=== PATIENT | female | born 1960 | race Caucasian/White ===

== ENCOUNTER 2020-11-03 13:19 | Inpatient (IN) ==
[2020-11-03] MEDS ORDERED: 0.9 % Sodium Chloride 1,000 ML IVC ONE (13:32)
[2020-11-03] MEDS ORDERED: Ipratropium/Albuterol Neb 3 ML IH ONE (13:32)
[2020-11-03] MEDS ORDERED: methylPREDNISolone 125 MG/2 ML VIAL IVP ONE (13:32)
[2020-11-03] MEDS ORDERED: Acetaminophen 325 MG TABLET PO ONE (13:51)
[2020-11-03 14:03] LABS: ABG Base Excess 4 mEq/L (-2 to 3); ABG HCO3 31 mEq/L (21-27); ABG Oxygen Saturation 98 % (95-98); ABG PCO2 58 mmHg (35-45); ABG PH 7.34 pH Units (7.32-7.45); ABG PO2 120 mmHg (85-104); ABG TCO2 33 mEq/L (20-26)
[2020-11-03 14:47] LABS: BUN/Creatinine Ratio 26 (6-26); Blood Urea Nitrogen 10 mg/dL (6-20); Calcium 9.2 mg/dL (8.6-10.3); Carbon Dioxide 30 mEq/L (23-29); Chloride 94 mEq/L (98-107); Creatine Kinase 164 Units/L (30-223); Glucose 118 mg/dL (70-105); Osmolality,Calculated 278 (280-300); Sodium 134 mEq/L (136-145); eGFR For African Americans > 60 (> 60); eGFR For Non-African Americans > 60 (> 60)
[2020-11-03 14:55] LABS: Troponin I < 0.03 ng/mL (< 0.04)
[2020-11-03 15:22] LABS: Adenovirus Not Detected (Not Detect); Bordetella Pertussis Not Detected (Not Detect); Chlamydophila pneumoniae Not Detected (Not Detect); Coronavirus 229E Not Detected (Not Detect); Coronavirus HKU1 Not Detected (Not Detect); Coronavirus NL63 Not Detected (Not Detect); Coronavirus OC43 Not Detected (Not Detect); Human Metapneumovirus Not Detected (Not Detect); Human Rhinovirus/Enterovirus Not Detected (Not Detect); Influenza A Subtype 2009 H1 Not Detected (Not Detect); Influenza B Not Detected (Not Detect); Mycoplasma pneumoniae Not Detected (Not Detect); Parainfluenza Virus 1 Not Detected (Not Detect); Parainfluenza Virus 2 Not Detected (Not Detect); Parainfluenza Virus 3 Not Detected (Not Detect); Parainfluenza Virus 4 Not Detected (Not Detect); Respiratory Syncytial Virus Not Detected (Not Detect); SARS-CoV-2 Not Detected (Not Detect)
[2020-11-03] MEDS ORDERED: Isovue-370 500 ML BOTTLE IVP ONE (15:32)
[2020-11-03] MEDS ORDERED: Naloxone 0.4 MG/ML INJ IVP PRN (15:37)
[2020-11-03] MEDS ORDERED: Ondansetron 4 MG/2 ML VIAL IVP PRN (15:37)
[2020-11-03] MEDS ORDERED: cefTRIAXone 2,000 MG in Water for inj. (sterile) 10 ML IVP SCH (16:00)
[2020-11-03 16:04] LABS: Basophils % 0.2 %; Eosinophils # 0.1 K/mcL (0.0-0.6); Eosinophils % 0.5 %; Hematocrit 39.7 % (35.3-44.9); Hemoglobin 12.6 g/dL (11.5-15.4); Immature Granulocytes % 0.7 % (0-4); Lymphocytes # 0.8 K/mcL (0.6-4.6); Lymphocytes % 4.9 %; Mean Corpuscular HGB Conc 31.7 g/dL (31.6-35.5); Mean Corpuscular Hemoglobin 28.3 pg (28.0-33.3); Mean Corpuscular Volume 89.2 fL (83.0-100.0); Monocytes # 0.5 K/mcL (0.0-1.3); Monocytes % 3.1 %; Neutrophils # 15.5 K/mcL (1.6-8.9); Platelet Count 432 K/mcL (140-400); Red Blood Count 4.45 M/mcL (3.82-4.97); Red Cell Distribution Width 13.8 % (11.5-14.5); Segmented Neutrophils % 90.6 %; White Blood Count 17.2 K/mcL (4.3-11.1)
[2020-11-03 17:29] LABS: Total Protein 6.9 g/dL (6.4-8.9)
[2020-11-03] MEDS: Doxycycline 100 MG in 0.9 % Sodium Chloride Mini Bag 100 ML IVPB SCH (18:02)
[2020-11-03] MEDS: *HR* Heparin 5,000 UNIT/ML VIAL SQ SCH (18:03)
[2020-11-03] MEDS: Nicotine 14 MG PATCH.TD24 TD SCH (20:21)
[2020-11-03] MEDS: Ipratropium/Albuterol Neb 3 ML IH SCH (22:49)
[2020-11-04] MEDS: Ipratropium/Albuterol Neb 3 ML IH SCH ×4 (04:59→22:20)
[2020-11-04 05:41] LABS: Basophils % 0.1 %; Eosinophils % 0.1 %; Hematocrit 42.5 % (35.3-44.9); Hemoglobin 13.2 g/dL (11.5-15.4); Immature Granulocytes % 0.8 % (0-4); Lymphocytes # 0.9 K/mcL (0.6-4.6); Lymphocytes % 6.6 %; Mean Corpuscular HGB Conc 31.1 g/dL (31.6-35.5); Mean Corpuscular Hemoglobin 27.6 pg (28.0-33.3); Mean Corpuscular Volume 88.7 fL (83.0-100.0); Mean Platelet Volume 9.3 fL (9.4-12.4); Monocytes # 0.3 K/mcL (0.0-1.3); Monocytes % 2.4 %; Neutrophils # 12.6 K/mcL (1.6-8.9); Platelet Count 412 K/mcL (140-400); Red Blood Count 4.79 M/mcL (3.82-4.97); Red Cell Distribution Width 13.8 % (11.5-14.5)
[2020-11-04 06:01] LABS: BUN/Creatinine Ratio 33 (6-26); Blood Urea Nitrogen 13 mg/dL (6-20); Calcium 9.3 mg/dL (8.6-10.3); Carbon Dioxide 29 mEq/L (23-29); Chloride 97 mEq/L (98-107); Glucose 114 mg/dL (70-105); Osmolality,Calculated 283 (280-300); Potassium 4.2 mEq/L (3.5-5.1); Sodium 136 mEq/L (136-145); eGFR For African Americans > 60 (> 60); eGFR For Non-African Americans > 60 (> 60)
[2020-11-04] MEDS: MethylPREDNISolone 40 MG/ML VIAL IVP SCH ×2 (06:10→17:50)
[2020-11-04] MEDS: Doxycycline 100 MG in 0.9 % Sodium Chloride Mini Bag 100 ML IVPB SCH ×2 (06:16→17:51)
[2020-11-04] MEDS: *HR* Heparin 5,000 UNIT/ML VIAL SQ SCH ×2 (06:16→17:50)
[2020-11-04] MEDS: *HR* LORazepam 2 MG/ML VIAL IVP PRN ×2 (06:32→21:59)
[2020-11-04 09:15] LABS: INR 1.2; Prothrombin Time 13.6 Seconds (9.4-12.1)
[2020-11-04] MEDS: Nicotine 14 MG PATCH.TD24 TD SCH (09:38)
[2020-11-04] MEDS: Budesonide/Formoterol 160/4.5 1 PUFF INH IH SCH ×2 (10:44→21:38)
[2020-11-04] MEDS ORDERED: Azithromycin 500 MG in 0.9 % Sodium Chloride 250 ML IVPB SCH (15:00)
[2020-11-04] MEDS: Acetaminophen 325 MG TABLET PO PRN (17:49)
[2020-11-04] MEDS: cefTRIAXone 1,000 MG in 0.9 % Sodium Chloride Mini Bag 100 ML IVPB SCH (17:50)
[2020-11-05 02:50] LABS: Basophils % 0.1 %; Hematocrit 37.7 % (35.3-44.9); Hemoglobin 11.7 g/dL (11.5-15.4); Immature Granulocytes % 1.1 % (0-4); Lymphocytes % 4.7 %; Mean Corpuscular Hemoglobin 27.8 pg (28.0-33.3); Mean Corpuscular Volume 89.5 fL (83.0-100.0); Mean Platelet Volume 8.9 fL (9.4-12.4); Monocytes # 0.6 K/mcL (0.0-1.3); Monocytes % 3.1 %; Neutrophils # 18.2 K/mcL (1.6-8.9); Platelet Count 469 K/mcL (140-400); Red Blood Count 4.21 M/mcL (3.82-4.97); Red Cell Distribution Width 13.7 % (11.5-14.5); White Blood Count 20.1 K/mcL (4.3-11.1)
[2020-11-05 03:10] LABS: BUN/Creatinine Ratio 51 (6-26); Blood Urea Nitrogen 19 mg/dL (6-20); Calcium 9.1 mg/dL (8.6-10.3); Carbon Dioxide 32 mEq/L (23-29); Chloride 96 mEq/L (98-107); Glucose 131 mg/dL (70-105); Osmolality,Calculated 282 (280-300); Potassium 4.8 mEq/L (3.5-5.1); Sodium 134 mEq/L (136-145); eGFR For African Americans > 60 (> 60); eGFR For Non-African Americans > 60 (> 60)
[2020-11-05] MEDS: Ipratropium/Albuterol Neb 3 ML IH SCH ×4 (04:10→22:12)
[2020-11-05] MEDS: *HR* Heparin 5,000 UNIT/ML VIAL SQ SCH ×2 (04:44→17:48)
[2020-11-05] MEDS: *HR* LORazepam 2 MG/ML VIAL IVP PRN ×2 (04:45→20:44)
[2020-11-05] MEDS: MethylPREDNISolone 40 MG/ML VIAL IVP SCH ×2 (04:45→17:49)
[2020-11-05] MEDS: Doxycycline 100 MG in 0.9 % Sodium Chloride Mini Bag 100 ML IVPB SCH ×2 (04:57→17:48)
[2020-11-05] MEDS ORDERED: Ondansetron 4 MG/2 ML VIAL IVP PRN (08:47)
[2020-11-05] MEDS ORDERED: Promethazine 6.25 MG in Water for inj. (sterile) 20 ML IVPB PRN (08:47)
[2020-11-05] MEDS ORDERED: *HR* HYDROmorphone PF 0.5 MG/0.5 ML SYRINGE IVP PRN (08:47)
[2020-11-05] MEDS ORDERED: *HR* OxyCODONE Immed Rel 5 MG TABLET PO PRN (08:47)
[2020-11-05] MEDS ORDERED: *HR* Rocuronium Bromide 50 MG/5 ML VIAL ONE (08:49)
[2020-11-05] MEDS ORDERED: *HR* Midazolam HCl 2 MG/2 ML VIAL ONE (08:49)
[2020-11-05] MEDS ORDERED: *HR* Succinylcholine 200 MG/10 ML VIAL IVP ONE (08:49)
[2020-11-05] MEDS ORDERED: *HR* Propofol 200 MG/20 ML VIAL IVP ONE (08:49)
[2020-11-05] MEDS ORDERED: Lidocaine HCL 4 ML Topical Solution (Laryng-O-Jet Kit Sterile Pak) TP ONE (08:49)
[2020-11-05] MEDS ORDERED: Lidocaine -MPF 2% 2 ML VIAL ONE (08:49)
[2020-11-05] MEDS ORDERED: *HR* FentaNYL (PF) 100 MCG/2 ML VIAL ONE (08:49)
[2020-11-05] MEDS ORDERED: Sugammadex Sodium 200 MG/2 ML VIAL IV ONE (09:46)
[2020-11-05] MEDS: Budesonide/Formoterol 160/4.5 1 PUFF INH IH SCH ×2 (10:27→22:13)
[2020-11-05] MEDS: Ipratropium/Albuterol Neb 3 ML IH PRN (10:52)
[2020-11-05 12:17] LABS: Lactate Dehydrogenase 203 Units/L (140-271); Total Protein 6.3 g/dL (6.4-8.9)
[2020-11-05] MEDS: Acetaminophen 325 MG TABLET PO PRN (12:36)
[2020-11-05] MEDS: Nicotine 14 MG PATCH.TD24 TD SCH (13:53)
[2020-11-05 15:10] LABS: RBC,Pleural Fluid 2000 RBC/mcL
[2020-11-05 15:11] LABS: Appearance of Pleural Fl Cloudy (Clear)
[2020-11-05 15:37] LABS: Total Protein,Pleural Fluid 4.4 g/dL
[2020-11-05 16:12] LABS: Basophils,Pleural Fluid 0 %; Eosinophils,Pleural Fluid 0 %; Monocytes,Pleural Fluid 0 %
[2020-11-05] MEDS: cefTRIAXone 1,000 MG in 0.9 % Sodium Chloride Mini Bag 100 ML IVPB SCH (17:49)
[2020-11-06] MEDS: Ipratropium/Albuterol Neb 3 ML IH SCH ×4 (03:42→22:24)
[2020-11-06 05:02] LABS: Basophils % 0.1 %; Hematocrit 38.4 % (35.3-44.9); Hemoglobin 11.7 g/dL (11.5-15.4); Immature Granulocytes % 1.3 % (0-4); Lymphocytes # 0.9 K/mcL (0.6-4.6); Lymphocytes % 5.2 %; Mean Corpuscular HGB Conc 30.5 g/dL (31.6-35.5); Mean Corpuscular Hemoglobin 27.7 pg (28.0-33.3); Monocytes % 5.9 %; Neutrophils # 15.2 K/mcL (1.6-8.9); Platelet Count 437 K/mcL (140-400); Red Blood Count 4.22 M/mcL (3.82-4.97); Red Cell Distribution Width 13.7 % (11.5-14.5); Segmented Neutrophils % 87.5 %; White Blood Count 17.3 K/mcL (4.3-11.1)
[2020-11-06 05:24] LABS: BUN/Creatinine Ratio 53 (6-26); Blood Urea Nitrogen 20 mg/dL (6-20); Carbon Dioxide 38 mEq/L (23-29); Chloride 94 mEq/L (98-107); Glucose 129 mg/dL (70-105); Osmolality,Calculated 286 (280-300); Potassium 4.4 mEq/L (3.5-5.1); Sodium 136 mEq/L (136-145); eGFR For African Americans > 60 (> 60); eGFR For Non-African Americans > 60 (> 60)
[2020-11-06] MEDS: *HR* Heparin 5,000 UNIT/ML VIAL SQ SCH ×2 (06:12→17:24)
[2020-11-06] MEDS: Doxycycline 100 MG in 0.9 % Sodium Chloride Mini Bag 100 ML IVPB SCH ×2 (06:13→17:25)
[2020-11-06] MEDS: MethylPREDNISolone 40 MG/ML VIAL IVP SCH ×2 (06:13→17:23)
[2020-11-06] MEDS: Nicotine 14 MG PATCH.TD24 TD SCH (07:46)
[2020-11-06] MEDS: Budesonide/Formoterol 160/4.5 1 PUFF INH IH SCH ×2 (10:26→22:24)
[2020-11-06 10:38] LABS: Alanine Aminotransferase 11 Units/L (7-52); Albumin 3.5 g/dL (3.5-5.7); Albumin/Globulin Ratio 1.4 (1.1-2.2); Alkaline Phosphatase 72 Units/L (34-104); Aspartate Amino Transferase 10 Units/L (13-39); Bilirubin,Direct 0.1 mg/dL (0.0-0.2); Bilirubin,Indirect 0.2 mg/dL (0.0-1.0); Bilirubin,Total 0.3 mg/dL (0.3-1.0); Globulin 2.5 g/dL (2.4-3.5); Lactate Dehydrogenase 166 Units/L (140-271)
[2020-11-06] MEDS: *HR* LORazepam 2 MG/ML VIAL IVP PRN ×2 (14:28→20:43)
[2020-11-06 14:36] LABS: Appearance of Body Fluid Cloudy (Clear); Volume of Body Fluid 17 mL
[2020-11-06] MEDS: cefTRIAXone 1,000 MG in 0.9 % Sodium Chloride Mini Bag 100 ML IVPB SCH (17:24)
[2020-11-07] MEDS: Ipratropium/Albuterol Neb 3 ML IH SCH ×4 (03:44→22:08)
[2020-11-07] MEDS: Acetaminophen 325 MG TABLET PO PRN (04:30)
[2020-11-07] MEDS: *HR* Heparin 5,000 UNIT/ML VIAL SQ SCH ×2 (05:27→17:15)
[2020-11-07 07:52] LABS: Basophils # 0.1 K/mcL (0.0-0.2); Basophils % 0.3 %; Eosinophils # 0.1 K/mcL (0.0-0.6); Eosinophils % 0.3 %; Hemoglobin 11.3 g/dL (11.5-15.4); Immature Granulocytes % 2.3 % (0-4); Lymphocytes # 1.4 K/mcL (0.6-4.6); Lymphocytes % 8.5 %; Mean Corpuscular HGB Conc 31.4 g/dL (31.6-35.5); Mean Corpuscular Hemoglobin 28.4 pg (28.0-33.3); Mean Corpuscular Volume 90.5 fL (83.0-100.0); Monocytes # 1.3 K/mcL (0.0-1.3); Monocytes % 7.7 %; Neutrophils # 13.1 K/mcL (1.6-8.9); Platelet Count 324 K/mcL (140-400); Red Blood Count 3.98 M/mcL (3.82-4.97); Red Cell Distribution Width 13.6 % (11.5-14.5); Segmented Neutrophils % 80.9 %; White Blood Count 16.2 K/mcL (4.3-11.1)
[2020-11-07 08:46] LABS: BUN/Creatinine Ratio 57 (6-26); Blood Urea Nitrogen 21 mg/dL (6-20); Calcium 8.8 mg/dL (8.6-10.3); Carbon Dioxide 28 mEq/L (23-29); Chloride 95 mEq/L (98-107); Glucose 95 mg/dL (70-105); Osmolality,Calculated 281 (280-300); Potassium 4.6 mEq/L (3.5-5.1); Sodium 134 mEq/L (136-145); eGFR For African Americans > 60 (> 60); eGFR For Non-African Americans > 60 (> 60)
[2020-11-07] MEDS: Doxycycline 100 MG CAPSULE PO SCH ×2 (09:16→20:41)
[2020-11-07] MEDS: Cefdinir 300 MG CAPSULE PO SCH ×2 (09:16→20:41)
[2020-11-07] MEDS: predniSONE 20 MG TABLET PO SCH (09:16)
[2020-11-07] MEDS: Nicotine 14 MG PATCH.TD24 TD SCH (09:17)
[2020-11-07] MEDS: *HR* LORazepam 1 MG TABLET PO PRN ×2 (09:23→20:41)
[2020-11-07] MEDS: Budesonide/Formoterol 160/4.5 1 PUFF INH IH SCH ×2 (11:32→22:13)
[2020-11-07] MEDS: Ipratropium/Albuterol Neb 3 ML IH PRN (19:32)
[2020-11-07] MEDS: Doxycycline 100 MG in 0.9 % Sodium Chloride Mini Bag 100 ML IVPB SCH (22:40)
[2020-11-07] MEDS: MethylPREDNISolone 40 MG/ML VIAL IVP SCH (22:40)
[2020-11-07] MEDS: Sennosides/Docusate Sodium TABLET PO SCH (23:44)
[2020-11-08 01:46] LABS: Fluid Source for Cholesterol PLEURAL FLUID
[2020-11-08 04:48] LABS: Basophils # 0.1 K/mcL (0.0-0.2); Basophils % 0.5 %; Eosinophils # 0.2 K/mcL (0.0-0.6); Eosinophils % 1.4 %; Hematocrit 37.6 % (35.3-44.9); Hemoglobin 11.7 g/dL (11.5-15.4); Immature Granulocytes % 2.5 % (0-4); Lymphocytes # 2.7 K/mcL (0.6-4.6); Lymphocytes % 17.4 %; Mean Corpuscular HGB Conc 31.1 g/dL (31.6-35.5); Mean Corpuscular Hemoglobin 27.6 pg (28.0-33.3); Mean Corpuscular Volume 88.7 fL (83.0-100.0); Mean Platelet Volume 9.4 fL (9.4-12.4); Monocytes # 1.4 K/mcL (0.0-1.3); Neutrophils # 10.7 K/mcL (1.6-8.9); Platelet Count 383 K/mcL (140-400); Red Blood Count 4.24 M/mcL (3.82-4.97); Red Cell Distribution Width 13.7 % (11.5-14.5); Segmented Neutrophils % 69.2 %; White Blood Count 15.5 K/mcL (4.3-11.1)
[2020-11-08] MEDS: Ipratropium/Albuterol Neb 3 ML IH SCH ×4 (04:58→21:46)
[2020-11-08 05:05] LABS: BUN/Creatinine Ratio 49 (6-26); Blood Urea Nitrogen 19 mg/dL (6-20); Calcium 8.9 mg/dL (8.6-10.3); Carbon Dioxide 32 mEq/L (23-29); Chloride 95 mEq/L (98-107); Glucose 76 mg/dL (70-105); Osmolality,Calculated 283 (280-300); Potassium 4.2 mEq/L (3.5-5.1); Sodium 136 mEq/L (136-145); eGFR For African Americans > 60 (> 60); eGFR For Non-African Americans > 60 (> 60)
[2020-11-08] MEDS: *HR* Heparin 5,000 UNIT/ML VIAL SQ SCH ×2 (06:20→16:55)
[2020-11-08] MEDS: Nicotine 14 MG PATCH.TD24 TD SCH (08:14)
[2020-11-08] MEDS: Doxycycline 100 MG CAPSULE PO SCH ×2 (08:18→19:57)
[2020-11-08] MEDS: Sennosides/Docusate Sodium TABLET PO SCH ×2 (08:18→19:57)
[2020-11-08] MEDS: *HR* LORazepam 1 MG TABLET PO PRN ×2 (08:18→20:00)
[2020-11-08] MEDS: predniSONE 20 MG TABLET PO SCH (08:18)
[2020-11-08] MEDS: Cefdinir 300 MG CAPSULE PO SCH ×2 (08:18→19:57)
[2020-11-08] MEDS: Ipratropium/Albuterol Neb 3 ML IH PRN (09:53)
[2020-11-08] MEDS: Budesonide/Formoterol 160/4.5 1 PUFF INH IH SCH ×2 (09:54→21:46)
[2020-11-08 10:32] LABS: Cholesterol,Body Fluid 98 mg/dL
[2020-11-08] MEDS: Acetaminophen 325 MG TABLET PO PRN (10:38)
[2020-11-09 02:28] LABS: Basophils # 0.1 K/mcL (0.0-0.2); Basophils % 0.3 %; Eosinophils # 0.4 K/mcL (0.0-0.6); Eosinophils % 2.7 %; Hematocrit 36.2 % (35.3-44.9); Hemoglobin 11.2 g/dL (11.5-15.4); Lymphocytes % 17.7 %; Mean Corpuscular HGB Conc 30.9 g/dL (31.6-35.5); Mean Corpuscular Hemoglobin 27.2 pg (28.0-33.3); Mean Corpuscular Volume 87.9 fL (83.0-100.0); Mean Platelet Volume 9.2 fL (9.4-12.4); Monocytes # 1.2 K/mcL (0.0-1.3); Monocytes % 7.6 %; Neutrophils # 11.2 K/mcL (1.6-8.9); Platelet Count 368 K/mcL (140-400); Red Blood Count 4.12 M/mcL (3.82-4.97); Red Cell Distribution Width 14.1 % (11.5-14.5); Segmented Neutrophils % 69.7 %; White Blood Count 16.1 K/mcL (4.3-11.1)
[2020-11-09 02:30] LABS: Lymphocytes # 2.9 K/mcL (0.6-4.6)
[2020-11-09 02:51] LABS: BUN/Creatinine Ratio 62 (6-26); Blood Urea Nitrogen 21 mg/dL (6-20); Calcium 8.7 mg/dL (8.6-10.3); Carbon Dioxide 34 mEq/L (23-29); Chloride 96 mEq/L (98-107); Glucose 104 mg/dL (70-105); Osmolality,Calculated 289 (280-300); Potassium 3.8 mEq/L (3.5-5.1); Sodium 138 mEq/L (136-145); eGFR For African Americans > 60 (> 60); eGFR For Non-African Americans > 60 (> 60)
[2020-11-09 02:59] LABS: Platelet Estimate Normal (Normal); Reactive Lymphocytes Present (Not Present)
[2020-11-09] MEDS: Ipratropium/Albuterol Neb 3 ML IH SCH ×4 (04:09→19:39)
[2020-11-09] MEDS: *HR* Heparin 5,000 UNIT/ML VIAL SQ SCH ×2 (05:55→18:27)
[2020-11-09] MEDS: Doxycycline 100 MG CAPSULE PO SCH (07:50)
[2020-11-09] MEDS: Cefdinir 300 MG CAPSULE PO SCH (07:51)
[2020-11-09] MEDS: Sennosides/Docusate Sodium TABLET PO SCH ×2 (07:51→19:36)
[2020-11-09] MEDS: predniSONE 20 MG TABLET PO SCH (07:51)
[2020-11-09] MEDS: Nicotine 14 MG PATCH.TD24 TD SCH (07:51)
[2020-11-09] MEDS: *HR* LORazepam 1 MG TABLET PO PRN ×2 (07:54→19:36)
[2020-11-09] MEDS: Budesonide/Formoterol 160/4.5 1 PUFF INH IH SCH ×2 (08:46→19:39)
[2020-11-09] MEDS ORDERED: levoFLOXacin 750 MG TABLET PO SCH (15:00)
[2020-11-09] MEDS: Ipratropium/Albuterol Neb 3 ML IH PRN ×2 (19:37→23:44)
[2020-11-10 01:39] LABS: Basophils % 0.2 %; Eosinophils # 0.1 K/mcL (0.0-0.6); Eosinophils % 0.8 %; Hematocrit 37.6 % (35.3-44.9); Hemoglobin 11.8 g/dL (11.5-15.4); Immature Granulocytes % 1.7 % (0-4); Lymphocytes # 2.6 K/mcL (0.6-4.6); Lymphocytes % 17.2 %; Mean Corpuscular HGB Conc 31.4 g/dL (31.6-35.5); Mean Corpuscular Hemoglobin 27.5 pg (28.0-33.3); Mean Corpuscular Volume 87.6 fL (83.0-100.0); Mean Platelet Volume 9.1 fL (9.4-12.4); Monocytes % 6.8 %; Neutrophils # 11.1 K/mcL (1.6-8.9); Platelet Count 332 K/mcL (140-400); Red Blood Count 4.29 M/mcL (3.82-4.97); Red Cell Distribution Width 14.3 % (11.5-14.5); Segmented Neutrophils % 73.3 %; White Blood Count 15.1 K/mcL (4.3-11.1)
[2020-11-10 01:59] LABS: BUN/Creatinine Ratio 54 (6-26); Blood Urea Nitrogen 19 mg/dL (6-20); Carbon Dioxide 32 mEq/L (23-29); Chloride 97 mEq/L (98-107); Glucose 103 mg/dL (70-105); Magnesium 1.8 mg/dL (1.6-2.6); Osmolality,Calculated 285 (280-300); Potassium 3.7 mEq/L (3.5-5.1); Sodium 136 mEq/L (136-145); eGFR For African Americans > 60 (> 60); eGFR For Non-African Americans > 60 (> 60)
[2020-11-10] MEDS: Acetaminophen 325 MG TABLET PO PRN (02:11)
[2020-11-10 04:02] VITALS: O2SAT 95
[2020-11-10] MEDS: Ipratropium/Albuterol Neb 3 ML IH SCH ×2 (04:02→10:05)
[2020-11-10] MEDS: *HR* LORazepam 1 MG TABLET PO PRN ×2 (04:05→08:25)
[2020-11-10] MEDS: *HR* Heparin 5,000 UNIT/ML VIAL SQ SCH (04:05)
[2020-11-10] MEDS: Nicotine 14 MG PATCH.TD24 TD SCH (08:22)
[2020-11-10] MEDS: Sennosides/Docusate Sodium TABLET PO SCH (08:25)
[2020-11-10] MEDS: predniSONE 20 MG TABLET PO SCH (08:25)
[2020-11-10] MEDS: Budesonide/Formoterol 160/4.5 1 PUFF INH IH SCH (10:05)
[2020-11-10 11:26] LABS: Adenovirus Not Detected (Not Detect); Bordetella Pertussis Not Detected (Not Detect); Chlamydophila pneumoniae Not Detected (Not Detect); Coronavirus 229E Not Detected (Not Detect); Coronavirus HKU1 Not Detected (Not Detect); Coronavirus NL63 Not Detected (Not Detect); Coronavirus OC43 Not Detected (Not Detect); Human Metapneumovirus Not Detected (Not Detect); Human Rhinovirus/Enterovirus DETECTED (Not Detect); Influenza A Subtype 2009 H1 Not Detected (Not Detect); Influenza B Not Detected (Not Detect); Mycoplasma pneumoniae Not Detected (Not Detect); Parainfluenza Virus 1 Not Detected (Not Detect); Parainfluenza Virus 2 Not Detected (Not Detect); Parainfluenza Virus 3 Not Detected (Not Detect); Parainfluenza Virus 4 Not Detected (Not Detect); Respiratory Syncytial Virus Not Detected (Not Detect); SARS-CoV-2 Not Detected (Not Detect)
[2020-11-10 13:29] VITALS: BP 110/71; PULSE 103; TEMP 98.5
== END 2020-11-10 14:10 | DRG 853 ==
LOC: 2ANU 13:19 → EMEROOARM 13:19 → SUATTDRO 15:47 → 2ANU 17:25 → SUATTDRO 11-04 11:49
PROVIDERS: ADMIT Internal Medicine; ATTEND Family Medicine